=== PATIENT | male | born 1955 | race Caucasian/White ===

== ENCOUNTER → 2016-05-24 | Day surgery (SDC) | payer BC ==
[2016-05-24 08:28] VITALS: BP 138/90
== END ==
LOC: FB.SDS 07:38
PROVIDERS: ATTEND Ophthalmology
DX: H26.9 Unspecified cataract (principal); Z53.8 Procedure and treatment not carried out for other reasons

== ENCOUNTER 2016-06-21 08:53 | Day surgery (SDC) | payer BC ==
[2016-06-21] MEDS ORDERED: Sodium Chloride 0.9% 10 ML Syringe FLUSH PRN (09:00)
[2016-06-21] MEDS ORDERED: Propofol 200 MG/20 ML SDV IV ONE (11:15)
[2016-06-21 12:30] VITALS: BP 136/90
--- NOTE | 2016-06-22 08:36 | OR ---
DATE OF OPERATION: 06/21/2016 SURGEON: Elijah Harkins MD PREOPERATIVE DIAGNOSIS: Cataract left eye. POSTOPERATIVE DIAGNOSIS: Cataract left eye. OPERATION PERFORMED: Phacoemulsification of cataract left eye with placement of an Osborne, model ZCB00, 24.5 diopter, foldable, posterior chamber intraocular lens. STORE SALES LEADER: None. DESCRIPTION OF PROCEDURE: Peribulbar anesthetic was performed using a mixture of 2% lidocaine with Wydase. The patient was prepped and draped in the usual fashion. A 3 mm fornix based conjunctival flap was performed at the 10 o'clock position. Hemostasis was obtained using diathermy, and a 2.8 mm grooved near clear corneal incision was then made. A stab incision was made into the anterior chamber at the 12 o'clock position and a second stab wound incision was made underlying the grooved near clear corneal incision. Viscoat was instilled into the anterior chamber, and a continuous tear capsulotomy was performed. Hydrodissection was accomplished with balanced salt solution, and the nucleus was removed in a divide and conquer fashion. The remaining cortical material was removed with the irrigation and aspiration unit. Viscoat was instilled into the anterior chamber, and an DEE, model Z9002, 24.5 diopter, foldable, posterior chamber intraocular lens was placed into the capsular bag, the haptics being positioned at the 1 and 7 o'clock positions. The residual Viscoat was removed from the anterior chamber and the anterior chamber reformed with balanced salt solution. The wound was checked and noted to be watertight. The conjunctiva was secured in its original position with diathermy. Alphagan and Maxitrol Ointment were then placed into the patient's eye. The patient tolerated the procedure well and it was without complication. Elapsed phacoemulsification time was 25.7 seconds. Postoperative instructions as related to activities as well as medications were reviewed with the patient. The patient was instructed to return to see me on the day following surgery for the first postoperative check. The patient was also instructed to contact me prior to that time if he were to have any problems. ADDENDUM: It should be noted that because of the patient's borderline pupillary dilation, 0.2 mL of a mixture of lidocaine, phenylephrine, and balanced salt solution were instilled into the anterior chamber. This helped to provide adequate pupillary dilation throughout the course of the surgery. /[id number] DEG/MODL CC: MARQUISE BALLESTEROS MD MTDD
== END 2016-06-21 12:55 | disposition home or self-care (01) ==
LOC: FB.SDS 08:53
PROVIDERS: ATTEND Ophthalmology
DX: H26.9 Unspecified cataract (principal); I10 Essential (primary) hypertension; F17.200 Nicotine dependence, unspecified, uncomplicated; Z79.899 Other long term (current) drug therapy; Z88.0 Allergy status to penicillin; Z98.890 Other specified postprocedural states; F17.210 Nicotine dependence, cigarettes, uncomplicated
CPT/HCPCS: 66984; A4217; C1780; J2704; J7050

== ENCOUNTER 2016-07-19 08:27 | Day surgery (SDC) | payer BC ==
[2016-07-19] MEDS ORDERED: Propofol 200 MG/20 ML SDV IV ONE (11:00)
[2016-07-19 13:21] VITALS: BP 148/90
--- NOTE | 2016-07-19 17:07 | OR ---
DATE OF OPERATION: 07/19/2016 SURGEON: Elijah Harkins MD PREOPERATIVE DIAGNOSIS: Cataract right eye. POSTOPERATIVE DIAGNOSIS: Cataract right eye. OPERATION PERFORMED: Phacoemulsification of cataract right eye with placement of an Osborne, model ZCB00, 24.5 diopters, foldable, posterior chamber intraocular lens. STEAMBOAT PILOT: None. DESCRIPTION OF PROCEDURE: Peribulbar anesthetic was performed using a mixture of 2% lidocaine with Wydase. The patient was prepped and draped in the usual fashion. A 3 mm fornix based conjunctival flap was performed at the 10 o'clock position. Hemostasis was obtained using diathermy, and a 2.8 mm grooved near clear corneal incision was then made. A stab incision was made into the anterior chamber at the 12 o'clock position and a second stab wound incision was made underlying the grooved near clear corneal incision. Viscoat was instilled into the anterior chamber, and a continuous tear capsulotomy was performed. Hydrodissection was accomplished with balanced salt solution, and the nucleus was removed in a divide and conquer fashion. The remaining cortical material was removed with the irrigation and aspiration unit. Viscoat was instilled into the anterior chamber, and an Osborne, model ZCB00, 24.5 diopters, foldable, posterior chamber intraocular lens was placed into the capsular bag, the haptics being positioned at the 1 and 7 o'clock positions. The residual Viscoat was removed from the anterior chamber and the anterior chamber reformed with balanced salt solution. The wound was checked and noted to be watertight. The conjunctiva was secured in its original position with diathermy. Alphagan and Maxitrol Ointment were then placed into the patient's eye. The patient tolerated the procedure well and it was without complication. Elapsed phacoemulsification time was 20.2 seconds. Postoperative instructions as related to activities as well as medications were reviewed with the patient. The patient was instructed to return to see me on the day following surgery for the first postoperative check. The patient was also instructed to contact me prior to that time if the patient were to have any problems. /[id number] DEG/MODL CC: Ton Kline OD
== END 2016-07-19 12:20 | disposition home or self-care (01) ==
LOC: FB.SDS 08:27
PROVIDERS: ATTEND Ophthalmology
DX: H26.9 Unspecified cataract (principal); I10 Essential (primary) hypertension; Z88.0 Allergy status to penicillin; Z98.890 Other specified postprocedural states; Z79.899 Other long term (current) drug therapy; F17.210 Nicotine dependence, cigarettes, uncomplicated
CPT/HCPCS: 66984; A4217; C1780; J2704